=== PATIENT | male | born 1985 | race Caucasian/White ===

== ENCOUNTER 2020-10-05 16:43 | Outpatient (REF) | payer BC, SELFPAY ==
[2020-10-07 16:51] LABS: Patient Race White; SARS-CoV-2 RNA Undetected (Undetected); SARS-CoV-2 Specimen Source Nasal
== END 2020-10-05 17:03 ==
LOC: NCHCN 16:43
PROVIDERS: PCP Family Medicine; Visit Provider Family Medicine
DX: Z20.9 Contact with and (suspected) exposure to unspecified communicable disease (principal)
CPT/HCPCS: U0003

== ENCOUNTER 2021-09-10 12:22 | Outpatient (REF) | payer BC, SELFPAY ==
[2021-09-11 16:10] LABS: COVID-19 RT-PCR UVMMC Result Negative (Negative)
== END 2021-09-10 12:23 | disposition home or self-care (01) ==
LOC: NCHCN 12:22
PROVIDERS: PCP Family Medicine; Visit Provider Family Medicine
DX: Z20.822 Contact with and (suspected) exposure to COVID-19 (principal)
CPT/HCPCS: U0003